=== PATIENT | male | born 1980 | race African-American/Black ===

== ENCOUNTER 2021-10-23 09:09 | Emergency (ER) | payer BC, SELFPAY | END 2021-10-23 12:25 | disposition home or self-care (01) | LOC: ERS 09:09 | DX: S62.301A Unspecified fracture of second metacarpal bone, left hand, initial encounter for closed fracture (principal); S62.303A Unspecified fracture of third metacarpal bone, left hand, initial encounter for closed fracture; J45.909 Unspecified asthma, uncomplicated; F17.210 Nicotine dependence, cigarettes, uncomplicated ==

== ENCOUNTER 2021-10-25 12:22 | Outpatient (CLI) | payer BC ==
[2021-10-25 14:24] LABS: #Eosinphils 0.1 10x3/uL (0.0-0.5); #Monocytes 0.5 10x3/uL (0.0-1.1); %Basophils 0.8 % (0.0-2.0); %Lymphocytes 26.3 % (18.0-47.0); %Monocytes 9.5 % (0.0-10.0); Hemoglobin 15.4 g/dL (13.5-17.5); Mean Corpuscular HGB CONC 32.2 g/dL (32.0-36.0); Mean Corpuscular Hemoglobin 25.6 pg (27.0-33.0); Mean Corpuscular Volume 79.5 fl (81.2-95.1); Mean Platelet Volume 10.6 fl (7.4-10.4); Platelet Count 193 10x3/uL (150-450); Red Blood Cell (RBC) Count 6.01 10x6/uL (4.32-5.72)
[2021-10-25 14:26] LABS: %Neutrophils 61.4 % (40.0-75.0)
[2021-10-26 14:36] LABS: SARS-CoV-2 PCR by NAA Not Detected (NotDetected)
== END 2021-10-25 12:23 | disposition home or self-care (01) ==
LOC: LABBT 12:22
PROVIDERS: ATTEND Orthopaedic Surgery Hand Surgery
DX: Z01.812 Encounter for preprocedural laboratory examination (principal); S62.212A Bennett's fracture, left hand, initial encounter for closed fracture; S62.301A Unspecified fracture of second metacarpal bone, left hand, initial encounter for closed fracture; S62.303A Unspecified fracture of third metacarpal bone, left hand, initial encounter for closed fracture; Z20.822 Contact with and (suspected) exposure to COVID-19
CPT/HCPCS: 85025; U0003; U0005

== ENCOUNTER 2021-10-30 13:15 | Day surgery (SDC) | payer BC ==
[2021-10-26 08:41] VITALS: BMI 32.1
[2021-10-30] MEDS ORDERED: ceFAZolin 2 GM/DEX 5% 100 ML BAG ONE (13:33)
[2021-10-30] MEDS ORDERED: Fentanyl 100 MCG/2 ML VIAL ONE ×2 (13:42→14:18)
[2021-10-30] MEDS ORDERED: Midazolam HCl 2 mg/2 ml Vial ONE ×2 (13:42→14:18)
[2021-10-30] MEDS ORDERED: Neomycin-Polymyxin 1 ML AMP ONE (14:20)
[2021-10-30] MEDS ORDERED: Bacitracin Zinc Ointment 30 gm TUBE ONE (14:20)
[2021-10-30] MEDS ORDERED: Bupivacaine PF 0.5% 30 ML VIAL ONE (14:20)
[2021-10-30] MEDS ORDERED: Ondansetron PF 4 MG/2 ML Vial ONE (14:37)
[2021-10-30] MEDS ORDERED: PROPOFOL 200 MG/20 ML VIAL ONE (14:37)
[2021-10-30] MEDS ORDERED: Dexamethasone 20 MG/5 ML VIAL ONE (14:37)
[2021-10-30] MEDS ORDERED: Ropivacaine 0.5% HCl/PF (150 MG/30 ML VIAL) ONE (14:37)
[2021-10-30] MEDS ORDERED: Ketorolac Tromethamine 30 MG/ML VIAL ONE (14:37)
[2021-10-30] MEDS ORDERED: Lidocaine 1% PF 5 ML VIAL ONE (14:37)
[2021-10-30] MEDS ORDERED: Meperidine HCl/PF 25 MG/ML VIAL ONE (17:17)
== END 2021-10-30 18:21 | disposition home or self-care (01) ==
LOC: SDC 13:15
PROVIDERS: ATTEND Orthopaedic Surgery Hand Surgery
PROC: 3E0T3BZ Introduction of Anesthetic Agent into Peripheral Nerves and Plexi, Percutaneous Approach (ICD-10-PCS; principal; 2021-10-30)
PROC: 2W3FXYZ Immobilization of Left Hand using Other Device (ICD-10-PCS; principal; 2021-10-30)
PROC: 0PSQ04Z Reposition Left Metacarpal with Internal Fixation Device, Open Approach (ICD-10-PCS; principal; 2021-10-30)
DX: S62.321A Displaced fracture of shaft of second metacarpal bone, left hand, initial encounter for closed fracture (principal); S62.323A Displaced fracture of shaft of third metacarpal bone, left hand, initial encounter for closed fracture; S62.345A Nondisplaced fracture of base of fourth metacarpal bone, left hand, initial encounter for closed fracture; W19.XXXA Unspecified fall, initial encounter
CPT/HCPCS: 76000; C1713; J1100; J1885; J2175; J2250; J2405; J2704; J2795; J3010; S0020